=== PATIENT | female | born 1990 ===

== ENCOUNTER 2018-01-27 20:12 | Emergency (ER) | payer MEDICAID, SELFPAY ==
[2018-01-27 20:12] VITALS: BMI 25.2
--- NOTE | 2018-01-27 20:49 | C.PDOC ---
History Of Present Illness 27 year old female presents to the ED for evaluation of a fever, tenderness to the left side of her breast that started yesterday. Patient states she is currently breast feeding. Patient denies nausea, vomit, diarrhea, trauma, injury , fall. Time Seen by Provider: 01/27/18 20:51 Chief Complaint (Nursing): Fever History Per: Patient History/Exam Limitations: no limitations Onset/Duration Of Symptoms: Days Current Symptoms Are (Timing): Still Present Associated Symptoms: Fever Ear Symptoms: Bilateral: None Recent travel outside of the [place]: No Additional History Per: Patient Past Medical History Reviewed: Historical Data, Nursing Documentation, Vital Signs Vital Signs: Last Vital Signs Temp 103 F H 01/27/18 20:25 Pulse 129 H 01/27/18 20:25 Resp 20 01/27/18 20:25 BP 136/81 01/27/18 20:25 Pulse Ox - Medical History PMH: No Chronic Diseases Denies: Depression, Diabetes, HTN Surgical History: No Surg Hx - [facility] Procedures DELIVERY OF PRODUCTS OF CONCEPTION, EXTERNAL APPROACH (01/17/18) MONITORING OF POC, CARDIAC RATE, CIVIL DESIGNER APPROACH (01/17/18) TRANSFUSE NONAUT RED BLOOD CELLS IN PERIPH VEIN, PERC (01/17/18) Family History: States: Unknown Family Hx - Social History Hx Tobacco Use: No Hx Alcohol Use: No Hx Substance Use: No - Immunization History Hx Tetanus Toxoid Vaccination: Yes Hx Influenza Vaccination: Yes Hx Pneumococcal Vaccination: No Review Of Systems Constitutional: Positive for: Fever. Negative for: Chills Cardiovascular: Positive for: Chest Pain Respiratory: Negative for: Cough, Shortness of Breath Gastrointestinal: Negative for: Nausea, Vomiting, Abdominal Pain Skin: Negative for: Rash Neurological: Negative for: Weakness, Numbness Physical Exam - Physical Exam Appears: Non-toxic, No Acute Distress Skin: Normal Color, Warm, Dry Head: Atraumatic, Normacephalic Eye(s): bilateral: Normal Inspection Nose: No Discharge Oral Mucosa: Moist Throat: Normal, No Erythema, No Exudate Neck: Normal ROM, Supple Chest: Symmetrical, Tenderness (left sided breast, swelling, redness), Other ( No D/C noted) Cardiovascular: Rhythm Regular, No Murmur Respiratory: Normal Breath Sounds, No Rales, No Rhonchi, No Wheezing Gastrointestinal/Abdominal: Soft, No Tenderness, No Guarding, No Rebound Extremity: Normal ROM, No Tenderness, No Swelling Neurological/Psych: Oriented x3 Gait: Steady Medical Decision Making Medical Decision Making: Impression: fever, breast pain Plan: * Tylenol 650 mg PO * Rocephin 50 ml IVPB Disposition Counseled Patient/Family Regarding: Diagnosis - Disposition Referrals: [facility] [Outside] Disposition: HOME/ ROUTINE Disposition Time: 21:29 Condition: STABLE Prescriptions: Amoxicillin/Clavulanate [Augmentin 500 MG-125 MG] 1 tab PO TID #30 tab Instructions: Fever, Adult (DC), Mastitis (DC), Common Problems Forms: [employer] (Swedish) - POA Present On Arrival: None - Clinical Impression Clinical Impression: Fever, Mastitis - Scribe Statement The provider has reviewed the documentation as recorded by the Scribe John Espinoza All medical record entries made by the Scribe were at my direction and personally dictated by me. I have reviewed the chart and agree that the record accurately reflects my personal performance of the history, physical exam, medical decision making, and the department course for this patient. I have also personally directed, reviewed, and agree with the discharge instructions and disposition.
[2018-01-27] MEDS ORDERED: cefTRIAXone IV 1 gm in Dextros 50 ML IVPB ONE ×2 (20:50→20:59)
[2018-01-27 21:37] VITALS: O2SAT 98
[2018-01-27 22:20] VITALS: BP 112/56; PULSE 102; RESP 20; TEMP 100
== END 2018-01-27 22:17 | disposition home or self-care (01) ==
LOC: C.ER 20:12
DX: N61.0 Mastitis without abscess (principal); R50.9 Fever, unspecified
CPT/HCPCS: 96365; 99284; J0696